=== PATIENT | male | born 1990 | race Caucasian/White ===

== ENCOUNTER → 2025-01-24 | Outpatient (CLI) | payer OTHER, SELFPAY ==
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
[2025-01-25 08:40] LABS: T4 Total, Thyroxin 5.3 ug/dL (4.5-12.1)
== END | disposition home or self-care (01) ==
LOC: LAB 09:09
PROVIDERS: PCP Preventive Medicine Occupational Medicine
DX: E03.9 Hypothyroidism, unspecified (principal); R53.83 Other fatigue
CPT/HCPCS: 36415; 84402; 84403; 84436; 84439; 84443